=== PATIENT | female | born 1985 | race Caucasian/White ===

== ENCOUNTER 2016-08-25 07:18 | Emergency (ER) | payer OTHER ==
[~2016-08-25] VITALS: Wt 72.1 kg
[2016-08-25 08:47] LABS: URINE BLOOD (Dip) POC Trace-intact (NEGATIVE)
[2016-08-25] MEDS ORDERED: CEFTRIAXONE 250 MG INJ IM ONE (09:00)
[2016-08-25] MEDS ORDERED: AZITHROMYCIN 250 MG TAB PO ONE (09:00)
[2016-08-25] MEDS ORDERED: LIDOCAINE 1% (MDV) 20 ML INJ SC ONE (09:00)
--- NOTE | 2016-08-25 09:35 | RADRPT ---
PROCEDURE: US Pelvis. CLINICAL INDICATION: Vaginal bleeding. TECHNIQUE: Multiple sonographic images of the pelvis were obtained utilizing a transabdominal and endovaginal technique. The images were reviewed on a PACS workstation. COMPARISON: Pelvic sonogram 06/04/2016. FINDINGS: The uterus is visualized and measures 6.56 cm sagittal by 4.6 cm AP by 5.1 cm transverse.. The endom etrial echo complex is normal and measures 1.1 cm. There is trace fluid in the cul-de-sac and right adnexal area. The right ovary has a normal echotexture and measures 3.6 by 2.7 x 2.1 cm . The left ovary has a normal echotexture and measures 3 x 2 x 2.3cm.. No adnexal masses are noted. IMPRESSION: Unremarkable pelvic ultrasound. No significant changes noted compared to 06/04/2016. RPTAT:AAJJ Physician Sanjay Date Time Electronically viewed and signed by Physician Sanjay on 08/25/2016 09:35 /
[2016-08-25] MEDS ORDERED: CIPR500T4 PO (09:47)
[2016-08-25] MEDS ORDERED: DOXY100T20 PO (09:51)
[2016-08-25] MEDS ORDERED: METR500T PO (09:51)
--- NOTE | 2016-08-25 11:48 | ERD ---
DATE OF SERVICE: HISTORY OF PRESENT ILLNESS: The patient is a 31-year-old female complaining of pelvic pain. Nate t states she has had intermittent lower pelvic pain for the last month. She states it a dull ache; however, she feels that it become more oppressive over the last few days. She states it does hurt w ith intercourse. No dysuria and denies any abnormal discharge. She feels that it us spasmatic in h er vaginal area with mild sharp pain all over. The patient has never had STDs in the past. She is with no new sexual partners, in a monogamous relationship as much as she knows. She had a h istory of herpes, but has not had an outbreak and 2 years. She has normal urination and bowel movem ents. G1, P0, A1 on control pills. Last known menstrual period 08/03/2016. PAST MEDICAL HISTORY: Denies medical problems. ALLERGIES TO MEDICATIONS: Denies. PAST SURGICAL HISTORY: Denies. HOSPITALIZATIONS: Denies. SOCIAL HISTORY: Denies smoking. REVIEW OF SYSTEMS: A 12-point review of systems was done. Refer to HPI for positives, all other sy stems negative. PHYSICAL EXAMINATION VITAL SIGNS: Temperature is 97.9, pulse 102, blood pressure is 144/84, respiratory rate 22, O2 satu ration 98% on room air. Pain intensity 8/10. GENERAL: The patient is well-appearing, well-nourished, no acute distress. HEENT: Atraumatic. Conjunctivae are pink. Pupils equal, round, and reactive to light. There is no s cleral icterus. Tympanic membranes clear bilaterally. Oropharynx clear. No nystagmus or photophobia . CHEST: Clear to auscultation bilaterally. There are no rales, wheezes or rhonchi. HEART: Regular rate and rhythm. No murmurs, clicks, rubs or gallops. No S3 or S4. ABDOMEN: Normal active bowel sounds heard on auscultation. No distention or organomegaly. Patient has mild tenderness to palpation over suprapubic region extending to the left lower quadrant. No r ebound tenderness. No organomegaly. BACK: No midline or flank tenderness. SKIN: There is no apparent rash or petechia. The skin is warm and dry. EMERGENCY ROOM COURSE: The patient had urine checked in the ER. Patient had 1+ leukocytes with tra ce blood. Patient's pelvic ultrasound showed unremarkable pelvic ultrasound. No significant change s when compared to 06/04/2016. The patient had urine sent for culture and GC chlamydia screening. The patient also had a exam in the ER. The patient did have white discharge noted within the vag inal vault and pain with CMT. There are no adnexal masses or adnexal tenderness. The patient was given IM injection of Rocephin 250 mg and a gram of azithromycin. DIAGNOSES 1. Pelvic pain. 2. Possible urinary tract infection. MEDICAL DECISION MAKING: The patient is not complaining of urinary tract infection symptoms. I fee l that patient is concerning for possible PID infection. I will treat for PID. Patient's urine pre gnancy was negative, so low suspicion for . I have low suspicion for ectopic and low suspicion for sepsis. Low suspicion for pyelo, low suspicion for other acute abdominal etiolog ies. The patient's exam is nonconcerning. DISCHARGE: The patient is discharged stable. The patient is given a prescription for metronidazole and doxycycline and told to return if symptoms change or worsen. The patient was also told that we will call in antibiotics if urine culture comes back positive. All other questions answered at molly e of discharge. Discharge summary given at the time of departure. Patient understood and complied with plan. Dictated By: MONIKA MENDOZA for MAK MARTINEZ/EHSAN Conf#: [id number] DID#: [id number]
== END 2016-08-25 10:02 | disposition home or self-care (01) ==
LOC: FTE 07:18
DX: R10.2 Pelvic and perineal pain (principal)
CPT/HCPCS: 76830; 76856; 81003; 87086; 87591; 96372; 99285; J0696